=== PATIENT | female | born 1970 | race Caucasian/White ===

== ENCOUNTER 2022-12-02 05:57 | Day surgery (SDC) | payer OTHER ==
[2022-12-02] MEDS ORDERED: Lactated Ringers 1,000 ML IV SCH (07:00)
[2022-12-02] MEDS ORDERED: DIPRIVAN 200 MG/20 ML IV ONE ×2 (07:33→07:48)
[2022-12-02] MEDS ORDERED: Xylocaine-Mpf 2% 5 Ml Vial ONE (07:33)
[2022-12-02 08:33] VITALS: O2SAT 98
--- NOTE | 2022-12-02 08:40 | OP ---
SURGERY DATE/TIME: 12/02/2022 0732 PREOPERATIVE DIAGNOSIS: Screening colonoscopy. POSTOPERATIVE DIAGNOSIS: Colon polyps x2. PROCEDURE: Colonoscopy. SURGEON: Sunday Damico M.D. ANESTHESIA: MAC by Neo Moody CRNA. ESTIMATED BLOOD LOSS: Minimal. SPECIMENS: 1) Hot snare polypectomy from the rectum x1. 2) Hot forceps polypectomy from the cecum x1. DESCRIPTION OF PROCEDURE: After informed written consent was obtained, the patient was taken to the endoscopy suite. She was placed in left lateral decubitus position and anesthesia was titrated to desired level of consciousness. Digital rectal exam showed normal sphincter tone and no internal lesions. The scope was inserted into the rectum and immediately upon entry there was a moderate sized sessile polyp in the rectal region which was encircled with a snare. It was snug to the base of it, cauterized and removed in its entirety. There was a slight a slight stalk-like appearance present afterwards therefore a second snare attempt was used to remove the remainder of the stalk down to the mucosal layer and good results were obtained with hemostasis. The polyp was retrieved in a trap and sent for testing. Upon entry the entire colonic mucosa was traversed. The level of cecum was reached and verified with direct visualization of the ileocecal valve. There was a small sessile polyp in the cecum which was grasped with forceps, cauterized and removed in its entirety. Upon withdrawal careful mucosal inspection revealed no more gross abnormalities throughout the entire length of the colon. Prep was noted to be good. Prior to withdrawal retroflexion was performed and showed no internal lesions. The scope was removed and the patient was transferred to the recovery room in good condition.
[2022-12-02 09:05] VITALS: BP 136/95; PULSE 65
== END 2022-12-02 08:51 | disposition home or self-care (01) ==
LOC: SDC 05:57
PROVIDERS: ATTEND Family Medicine
DX: Z12.11 Encounter for screening for malignant neoplasm of colon (principal); D12.7 Benign neoplasm of rectosigmoid junction; D12.0 Benign neoplasm of cecum
CPT/HCPCS: J2704